=== PATIENT | male | born 1955 | race Hispanic/Latino ===

== ENCOUNTER → 2021-05-17 | Day surgery (SDC) | payer BC, OTHER ==
[~2021-05-17] MED LIST: ASPIRIN325 MG PO; BUPROPION HCL150 MG PO; CRESTOR40 MG PO; DULOXETINE HCL PO; FENTANYL CITRATE/PF 100MCG/2 ML INJ ONE; FLOMAX0.4 MG PO; LIDOCAINE HCL 2% LOCAL INJ 5 ML SDV VIAL INJ ONE; LYRICA150 MG PO; MIDAZOLAM HCL 2 MG/2 ML VIAL ONE; OMEPRAZOLE40 MG PO; PROPOFOL IV EMULSION 10 MG/ML 20 ML VIAL ONE; PROTONIX40 M1 PO; ROBAXIN750 MG PO; SOMA350 MG PO; Z.0.ASPIRIN CHEW81 M PO; Z.3.HYDROCODON-ACE1 PO; ZOLPIDEM TARTRA10 MG PO
[2021-05-17 09:30] VITALS: BP 123/79
== END | disposition home or self-care (01) ==
LOC: OR 06:11
PROVIDERS: ATTEND Internal Medicine Gastroenterology
DX: K22.719 Barrett's esophagus with dysplasia, unspecified (principal); K63.5 Polyp of colon; K29.50 Unspecified chronic gastritis without bleeding; K57.30 Diverticulosis of large intestine without perforation or abscess without bleeding; K64.8 Other hemorrhoids; K21.9 Gastro-esophageal reflux disease without esophagitis; K44.9 Diaphragmatic hernia without obstruction or gangrene; Z71.3 Dietary counseling and surveillance; E66.9 Obesity, unspecified; G89.29 Other chronic pain; E78.5 Hyperlipidemia, unspecified; R00.1 Bradycardia, unspecified; F17.200 Nicotine dependence, unspecified, uncomplicated; Z71.6 Tobacco abuse counseling; Z88.8 Allergy status to other drugs, medicaments and biological substances; Z20.822 Contact with and (suspected) exposure to COVID-19; Z79.899 Other long term (current) drug therapy; Z68.33 Body mass index [BMI] 33.0-33.9, adult; Z86.16 Personal history of COVID-19
CPT/HCPCS: 43239; 45385; 93005; J2001; J2250; J2704; J3010; U0002; 45378